=== PATIENT | male | born 1980 | race Caucasian/White ===

== ENCOUNTER 2023-05-07 08:52 | Emergency (ER) | payer OTHER ==
[2023-05-07 09:01] VITALS: BP 139/96; PULSE 109; RESP 18; TEMP 98; BMI 35.5
[2023-05-07] MEDS ORDERED: AMOX TR/POT CLAV 875MG/125MG TABLETS (FP) PO ONE (10:24)
[2023-05-07] MEDS ORDERED: AMOX TR/POT CLAV 875MG/125MG TABLETS (FP) ONE (11:16)
== END 2023-05-07 11:20 | disposition home or self-care (01) ==
LOC: JERFT 08:52
DX: R05.9 Cough, unspecified (principal); R09.81 Nasal congestion; H92.02 Otalgia, left ear; R09.89 Other specified symptoms and signs involving the circulatory and respiratory systems; H66.92 Otitis media, unspecified, left ear; U07.1 COVID-19
CPT/HCPCS: 0241U-QW; 99283-25